=== PATIENT | male | born 1970 | race Caucasian/White ===

== ENCOUNTER → 2016-09-18 | Outpatient (CLI) | payer BC ==
[~2016-09-18] MED LIST: CYCL10TA6 PO; ESCI1TAB9 PO; MULT20CH PO; OPTIRAY 320 IV PRN; OXYC-57 PO
--- NOTE | 2016-09-18 09:24 | DIAGNOSTIC IMAGING REPORT ---
CT ABD/PELVIS IV AND ORAL CONT CLINICAL HISTORY: Left lower quadrant abdominal pain COMPARISON STUDY: None. TECHNIQUE: Following the IV administration of 116 mL of Optiray-320, CT scan of the abdomen and pelvis was performed from the lung bases to the proximal femurs. Images are reviewed in the axial, sagittal, and coronal planes. IV contrast was administered without complication. CT DOSE: 1433.08 mGy.cm FINDINGS: Lower chest: There are minor bibasilar atelectatic changes. Liver: There is mild hepatic steatosis. There is a 2 cm left lobe hepatic cyst. Gallbladder: Unremarkable. Spleen: The spleen is mildly enlarged measuring 13.7 cm in length. Pancreas: Unremarkable. Adrenal glands: Unremarkable. Kidneys: There is symmetric renal cortical enhancement. The kidneys are normal in size without hydronephrosis. Bowel: There are no transition zones indicate bowel obstruction. The appendix appears normal. There are scattered colonic diverticula present. There is mild infiltration of the fat adjacent to the descending colon. There is no significant colonic wall thickening. Epiploic appendagitis is favored over diverticulitis. There is also subtle infiltration of the fat within the left central mesentery. There are associated mildly prominent lymph nodes. Peritoneum: There is no intraperitoneal free air or abdominal ascites. Vasculature: The abdominal aorta is normal in course and caliber. Adenopathy: There are mildly prominent lymph nodes within the left central mesentery. Pelvic viscera: The bladder, and pelvic viscera are unremarkable. Skeletal structures: There is bilateral L5 spondylolysis. There is a grade 1 spondylolisthesis of L5 and S1. No destructive lesions are visualized. IMPRESSION: 1. No evidence of bowel obstruction. No evidence of free air 2. Normal appendix 3. Mild infiltration of the fat anterior to the descending colon. Epiploic appendagitis is favored over diverticulitis. Clinical follow-up is advocated 4. Subtle infiltration of the left central mesentery with mildly prominent lymph nodes. This likely represents a nonspecific mesenteritis. A lymphoproliferative process is felt to be statistically less likely. A 6 month follow-up CT scan might be considered. 5. Hepatic steatosis. 2 cm left lobe hepatic cyst. 6. Mild splenomegaly Electronically signed by: Scott Garcias M.D. 09/18/2016 9:22 AM Dictated Date/Time: 09/18/2016 9:14 AM
== END | disposition home or self-care (01) ==
LOC: C.CTS 08:45
PROVIDERS: ATTEND Family Medicine
DX: K59.00 Constipation, unspecified (principal); R16.1 Splenomegaly, not elsewhere classified

== ENCOUNTER 2017-03-28 16:40 | Emergency (ER) | payer BC ==
[~2017-03-28] VITALS: Ht 182.9 cm; Wt 127.4 kg
[2017-03-28 16:42] VITALS: TEMP 36.8; Ht 182.9 cm; Wt 127.4 kg
[2017-03-28] MEDS ORDERED: OXYCODONE/ACETAMINOPHEN 5-325 TAB PO STA (17:02)
[2017-03-28] MEDS ORDERED: ESCI1TAB9 PO (17:08)
[2017-03-28] MEDS ORDERED: MULT20CH PO (17:08)
--- NOTE | 2017-03-28 17:20 | EMERGENCY ROOM VISIT NOTE ---
History First contact with patient: 16:54 Chief Complaint: SHOULDER PAIN Stated Complaint: RIGHT SHOULDER AND NECK PAIN History of Present Illness The patient is a 46 year old male who presents to the Emergency Room with complaints of right shoulder pain after sustaining a minor fall prior to arrival. The patient was walking down concrete steps when he missed a step falling very hard against a concrete wall with his right shoulder. He now is unable to move the shoulder. He denies any other injuries. He did not hit his head. He is able to move the right elbow and the right wrist. He denies any numbness or tingling. He did not take anything for pain prior to arrival. He denies any prior trauma to this shoulder. He denies any difficulty breathing. Review of Systems 6 system review negative. Please see pertinent positives in the history of present illness section. Past Medical/Surgical History History of diverticulitis, anxiety Family History Cancer, diabetes Social History Smoking Status: Never Smoker Alcohol Use: occasionally Current/Historical Medications Scheduled Cyclobenzaprine Hcl (Flexeril), 10 MG PO TID Escitalopram Oxalate (Lexapro), 10 MG PO DAILY Multiple Vitamins W/ Minerals (Adult One Daily Gummies), 1 TAB PO DAILY Scheduled PRN Oxycodone/Acetaminophen 5MG/325MG (Percocet 5MG/325MG), 1-2 TABS PO Q4H PRN for Pain Allergies Coded Allergies: No Known Allergies (Unverified , NONE, 05/16/09) Physical Exam Vital Signs Date Time Temp Pulse Resp B/P (MAP) Pulse Ox O2 Delivery O2 Flow Rate FiO2 03/28/17 18:20 77 17 138/93 95 Room Air 03/28/17 16:42 36.8 96 18 145/82 95 Room Air Pain Rating (0-10): 9.5 Physical Exam VITALS: Vitals are noted on the nurse's note and reviewed by myself. Vital signs stable. GENERAL: 46-year-old male, in significant discomfort, SKIN: The skin a few minor abrasions noted to the right posterior ribs. Minor abrasion to the right knee. HEAD: Normocephalic atraumatic. NECK: Full range of motion of the neck . No tenderness over the cervical spine. CV: regular Rate and rhythm without murmurs gallops or rubs. THORAX: No tenderness over the thorax elicited LUNGS: Clear to auscultation bilaterally without wheezes, rales or rhonchi. No accessory muscle use. MUSCULOSKELETAL: RUE: Tenderness to palpation noted over the anterior aspect of the shoulder. Severe limitation of range of motion in all directions of the right shoulder. No tenderness noted over the clavicle. + empty can test. Sensation over the deltoid is intact. Radial pulse +2. The patient is able to wiggle his fingers. NEURO: Patient was alert and oriented to person place and time. Normal sensation to touch. No focal neurological deficits. Medical Decision & Procedures ER Provider Diagnostic Interpretation: Patient Name: PEEWEE WHITEHEAD Unit Number: [id number] Dictated: 03/28/171731 Transcribed: 03/28/171731 MS Printed Date/Time: [~ rep prt dt]/[~ rep prt tm] [~ rep ct labl] - [~ rep ct ivnm] [facility] Radiology Department [place] [id number] Dictated: 03/28/171731 Transcribed: 03/28/171731 MS Printed Date/Time: [~ rep prt dt]/[~ rep prt tm] [~ rep ct labl] - [~ rep ct ivnm] Patient: PEEWEE WHITEHEAD Address1: [address] [place] [address] Rec: [id number] Address2: Acct ID: [id number] [facility] Zip: [place] [address] Date: 1970 Sex: M Room/Bed: Ref Phy: Keyur Prescott DO SC: YAIRB Att Phy: Report #: [id number] Rosemary Phy: Keyur Prescott DO Test: SHD Admit Phy: Reproductive Surgeon: SEBASTIÁN Interpreting Phy: Micha Hylton M.D. Diagnosis: RIGHT SHOULDER AND NECK PAIN Ordering Phy: Emily Jurado PA-C Service Date: 03/28/17 Admit Date: 03/28/17 MNE: [id number] CONF: DICTATED BY: Micha Hylton M.D.]] CC: Keyur Prescott, Jessee Calhoun D.O. Urban, Angela P., PA-C Endcc: [~ rep ct add3]] RIGHT SHOULDER MIN 2 VIEWS ROUTINE CLINICAL HISTORY: ? Dislocation or fx Right trauma COMPARISON: None. DISCUSSION: Old fracture distal right clavicle. No acute bony abnormality. No evidence for dislocation. Mild degenerative change glenohumeral joint. There is no evidence for soft tissue swelling. IMPRESSION: Findings consistent with old fracture of the distal clavicle. No acute process of the shoulder. The above report was generated using voice recognition software. It may contain grammatical, syntax or spelling errors. Electronically signed by: Micha Hylton M.D. 03/28/2017 5:33 PM Dictated Date/Time: 03/28/2017 5:32 PM The status of this report is Signed. Draft = Not yet reviewed or approved by Radiologist. Signed = Reviewed and approved by Radiologist. <AttendingPhy></AttendingPhy> <FamilyPhy>Keyur Prescott DO</FamilyPhy> < PrimaryPhy>Keyur Prescott DO</PrimaryPhy> <UnitNumber>[id number]</ UnitNumber> <VisitNumber>[id number]</VisitNumber> <PatientName>PEEWEE WHITEHEAD< /PatientName> <DateOfBirth>1970</DateOfBirth> <Location>C.EDB</Location> < ServiceDate>03/28/17</ServiceDate> <MNE>ESINDI</MNE> <OrderingPhy>Emily Jurado PA-C</OrderingPhy> <OrderingPhyMNE>f rep ord dr regan</OrderingPhyMNE> < DictatingPhyMNE>f rep dict dr regan</DictatingPhyMNE> <CCListMNE>f rep ct mne</ CCListMNE> <AdmittingPhyMNE>f pt admit dr regan</AdmittingPhyMNE> <AttendingPhyMNE >f pt attend dr regan</AttendingPhyMNE> <ConsultingPhyMNE>f pt consult dr regan</ConsultingPhyMNE> <FamilyPhyMNE>f pt fam dr regan</FamilyPhyMNE> <OtherPhyMNE>f pt other dr regan</OtherPhyMNE> < PrimaryPhyMNE>f pt prim care dr regan</PrimaryPhyMNE> <ReferringPhyMNE>f pt referring dr regan</ReferringPhyMNE> Medications Administered Medications (Trade) Dose Ordered Sig/Shaye Route Start Time Stop Time Status Last Admin Dose Admin Oxycodone/ Acetaminophen (Percocet 5-325mg Tab) 1 tab NOW STAT PO 03/28/17 17:02 03/28/17 17:03 DC 03/28/17 17:11 1 TAB Oxycodone/ Acetaminophen (Percocet 5/ 325MG Home Pack) 1 homepack UD ONCE PO 03/28/17 18:00 03/28/17 18:01 DC 03/28/17 18:17 1 HOMEPACK Cyclobenzaprine HCl (FLEXERIL 10MG Home Pack) 1 homepack UD ONCE PO 03/28/17 18:00 03/28/17 18:01 DC 03/28/17 18:17 1 HOMEPACK ED Course The patient was seen and examined He was given 1 Percocet and Flexeril for pain Imaging was performed and reviewed The patient was reassessed. His pain was slightly better. We discussed the findings of his x-rays. I discussed possible etiologies of the shoulder pain. He voices understanding. The patient was given a home pack of Percocet and Flexeril His arm was put in a sling Discharge instructions were thoroughly reviewed, and the patient was discharged in good condition Medical Decision Differential diagnosis: AC separation, shoulder dislocation, fracture, rotator cuff injury, humerus fracture This patient is a pleasant 46-year-old male that presents the emergency department complaining of right shoulder pain and difficulty moving the right shoulder. He slipped hitting his right shoulder against a concrete wall. On exam, the patient was reluctant to do any range of motion with the shoulder. He was tender in the anterior portion of the shoulder. Imaging was negative for any fracture or subluxation. Upon further examination, I feel there is likely a rotator cuff injury. The patient was put in a sling. He was given pain medication and a muscle relaxant. He was instructed to follow-up with orthopedics this week. He is in agreement with this plan. Impression Primary Impression: Rotator cuff injury Departure Information Dispostion Home / Self-Care Condition GOOD Prescriptions Cyclobenzaprine Hcl (FLEXERIL) 10 Mg Tab 10 MG PO TID for Muscle Spasms, #20 TAB Prov: Emily Jurado PA-C 03/28/17 Oxycodone/Acetaminophen 5MG/325MG (PERCOCET 5MG/325MG) Tab 1-2 TABS PO Q4H Y for Pain, #15 TAB Prov: Emily Jurado PA-C 03/28/17 Referrals Keyur Prescott DO (PCP) Steve Campos D.O. Patient Instructions My [facility], Rotator Cuff Injury Additional Instructions You had been evaluated in the emergency department for an injury to your shoulder. X-rays did not show any signs of fracture or dislocation. I am concerned however that you may have an injury to your rotator cuff. Please rest the arm in a sling Please call the orthopedic doctors office in the morning to make a follow-up appointment. If you have any problems, please call the emergency department at [phone] Ibuprofen 600 mg every 6 hours Percocet 1-2 tabs every 4 hours for severe pain. Do not drink alcohol or drive while taking this medication. This may be taken with ibuprofen, but avoid Tylenol. Flexeril 1 tablet every 8 hours as needed for muscle spasms Please return to the emergency department with any new or worsening symptoms
--- NOTE | 2017-03-28 17:35 | DIAGNOSTIC IMAGING REPORT ---
RIGHT SHOULDER MIN 2 VIEWS ROUTINE CLINICAL HISTORY: ? Dislocation or fx Right trauma COMPARISON: None. DISCUSSION: Old fracture distal right clavicle. No acute bony abnormality. No evidence for dislocation. Mild degenerative change glenohumeral joint. There is no evidence for soft tissue swelling. IMPRESSION: Findings consistent with old fracture of the distal clavicle. No acute process of the shoulder. The above report was generated using voice recognition software. It may contain grammatical, syntax or spelling errors. Electronically signed by: Micha Hylton M.D. 03/28/2017 5:33 PM Dictated Date/Time: 03/28/2017 5:32 PM
[2017-03-28] MEDS ORDERED: FLEXERIL HOME PACK 10 MG VIAL PO ONE (18:00)
[2017-03-28] MEDS ORDERED: PERCOCET HOME PACK PO ONE (18:00)
[2017-03-28 18:20] VITALS: BP 138/93; PULSE 77; O2SAT 95
[2017-03-28] MEDS ORDERED: CYCL10TA6 PO (18:26)
[2017-03-28] MEDS ORDERED: OXYC-57 PO (18:26)
== END 2017-03-28 18:39 | disposition home or self-care (01) ==
LOC: C.EDB 16:41
DX: S46.001A Unspecified injury of muscle(s) and tendon(s) of the rotator cuff of right shoulder, initial encounter (principal); W10.9XXA Fall (on) (from) unspecified stairs and steps, initial encounter; W22.09XA Striking against other stationary object, initial encounter; Y93.01 Activity, walking, marching and hiking; Y99.8 Other external cause status; Z83.3 Family history of diabetes mellitus; F41.9 Anxiety disorder, unspecified; Z79.899 Other long term (current) drug therapy

== ENCOUNTER → 2017-04-26 | Outpatient (CLI) | payer BC ==
[~2017-04-26] MED LIST changes: -CYCL10TA6 PO; -OPTIRAY 320 IV PRN
--- NOTE | 2017-04-26 07:47 | DIAGNOSTIC IMAGING REPORT ---
RIGHT UPPER EXT JOINT WITHOUT CLINICAL HISTORY: RIGHT SHOULDER PAIN, POSSIBLE TEAR Right TECHNIQUE: MRI multi axial acquisition COMPARISON STUDY: None FINDINGS: Signal characteristics the osseous structures are unremarkable. A joint effusion is present. There is fluid within the subdeltoid bursa as well as acromioclavicular joint. There is a full-thickness tear of the supraspinatus tendon. There is musculotendinous retraction of approximately 2 cm. There is a partial tear of the subscapularis tendon at its insertion with the humerus. There may be a small partial tear of the infraspinatus tendon. There is no evidence for muscular tendinous retraction of either the infraspinatus or subscapularis. Biceps tendon is intact within the bicipital groove. There is a focal short segment tear anterior aspect of the glenoid labrum. Remainder of the labrum is intact. There is moderate generalized soft tissue edematous change about the shoulder. IMPRESSION: 1. Full-thickness tear with retraction of the supraspinatus tendon. 2. 2 cm of musculotendinous retraction. 3. Partial thickness tears of the subscapularis as well as infraspinatus tendons. 4. Focal short segment tear anterior glenoid labrum. The above report was generated using voice recognition software. It may contain grammatical, syntax or spelling errors. Electronically signed by: Micha Hylton M.D. 04/26/2017 7:45 AM Dictated Date/Time: 04/26/2017 7:39 AM
== END | disposition home or self-care (01) ==
LOC: C.MRIBC 06:39
PROVIDERS: ATTEND Orthopaedic Surgery
DX: M75.101 Unspecified rotator cuff tear or rupture of right shoulder, not specified as traumatic (principal)

== ENCOUNTER → 2017-07-26 | Outpatient (CLI) | payer BC ==
[2017-07-26 12:49] LABS: BASO % 0.4 %; BASO ABS # 0.02 K/uL (0-0.2); COMPLETE YES; EOS % 2.5 %; HEMATOCRIT 44.4 % (42-52); IG% 0.4 %; LYMPH % 36.5 %; LYMPH ABS # 2.05 K/uL (1.2-3.4); MEAN CELL VOLUME 90.1 fL (80-100); MEAN CORPUSCULAR HEMOGLOBIN 31.2 pg (25-34); MEAN CORPUSCULAR HGB CONC 34.7 g/dl (32-36); MEAN PLATELET VOLUME 10.6 fL (7.4-10.4); MONO % 7.8 %; NEUT % 52.4 %; PLATELET COUNT 215 K/uL (130-400); RED BLOOD COUNT 4.93 M/uL (4.7-6.1); WHITE BLOOD COUNT 5.61 K/uL (4.8-10.8)
[2017-07-26 12:53] LABS: BLOOD UREA NITROGEN 12 mg/dl (7-18); BUN/CREATININE RATIO 10.6 (10-20); CARBON DIOXIDE 27 mmol/L (21-32); CHLORIDE 102 mmol/L (98-107); CREATININE 1.15 mg/dl (0.60-1.40); GLUCOSE 100 mg/dl (70-99); POTASSIUM 4.1 mmol/L (3.5-5.1); SODIUM 138 mmol/L (136-145)
== END | disposition home or self-care (01) ==
LOC: C.CPL 10:09
PROVIDERS: ATTEND Orthopaedic Surgery
DX: Z01.812 Encounter for preprocedural laboratory examination (principal); M75.121 Complete rotator cuff tear or rupture of right shoulder, not specified as traumatic

== ENCOUNTER → 2017-08-19 | Day surgery (SDC) | payer BC ==
[2017-07-29 11:27] VITALS: Ht 182.9 cm; Wt 131.8 kg
[~2017-08-19] VITALS: Ht 182.9 cm; Wt 131.8 kg
[~2017-08-19] MED LIST changes: +BUPIVACAINE/EPINEPHRINE 0.25% 1:200,000 30 ML VIAL ONE; +CEFAZOLIN 2000MG IV PUSH 10 ML IV SCH; +DEXAMETHASONE SOD INJ 4 MG/ML VIAL ONE; +EpINEphrine INJ 1MG/ML AMP 1 MG/ML AMP ONE; +FENTANYL CITRATE INJ 50 MCG/1 ML 2 ML VIAL ONE; +KETO10TA PO; +LACTATED RINGER'S 1000ML 1,000 ML IV SCH; +LIDOCAINE HCL 2% 2 ML VIAL (20MG/ML) ONE; +MIDAZOLAM HCL 1 MG/ML 2ML VIAL ONE; +ONDANSETRON INJ 2 MG/ML 2 ML VIAL IV PRN; +ONDANSETRON INJ 2 MG/ML 2 ML VIAL ONE; +OXYCODONE/ACETAMINOPHEN 5-325 TAB PO PRN; +PROPOFOL IV EMULSION 10 MG/ML 20 ML VIAL IV ONE; +ROCURONIUM BROMIDE 10 MG/ML 5 ML VIAL IV ONE; +ROPIVACAINE 0.5% 5 MG/ML 30 ML VIAL ONE; +SODIUM CHLORIDE 0.9% 1000ML 1,000 ML IV SCH
--- NOTE | 2017-08-19 12:38 | History & Physical Bridge Note ---
H&P Re-Evaluation Bridge Note: I have examined the patient, reviewed the History & Physical and in the interval since the performance of the History & Physical I have noted the following changes of clinical significance: No changes noted
--- NOTE | 2017-08-19 15:32 | [facility] Post Operative Brief Note ---
Immediate Operative Summary Operative Date Aug 19, 2017. Pre-Operative Diagnosis Right Shoulder Large Rotator Cuff Tear Post-Operative Diagnosis Same Procedure(s) Performed Right Shoulder Arthroscopy, Large Rotator Cuff Repair, Subacromial Decompression, Biceps Tenodesis Surgeon Dr. Delarosa Ball Fringe Machine Operator Surgeon(s) Sandy Snider PA-C Estimated Blood Loss 5ML Findings as above Specimens None Complication(s) None Disposition Recovery Room / PACU
--- NOTE | 2017-08-19 15:50 | Discharge Instructions-SurgCtr ---
Discharge Instructions Date of Service Aug 19, 2017. Visit Reason for Visit: Right Shoulder Full Thickness Rotator Cuff Tear Discharge Discharge Diagnosis / Problem: SAME ABOVE Discharge Goals Goal(s): Decrease discomfort, Improve function Activity Recommendations Activity Limitations: as noted below Lifting Limitations: until after follow-up appointment (NO LIFTING WITH RIGHT SHOULDER ) Shower/Bathe: tomorrow Anesthesia . Post Anesthesia Instructions: If you have had General Anesthesia or IV Sedation: * Do not drive today. * Resume driving when surgeon permits. * Do not make important decisions or sign legal documents today. * Call surgeon for: 1. Temperature elevations greater than 101 degrees F. 2. Uncontrollable pain. 3. Excessive bleeding. 4. Persistent nausea and vomiting. 5. Medication intolerance (nausea, vomiting or rash). * For nausea and vomiting use only clear liquids such as: tea, soda, bouillon until nausea subsides, then gradually increase diet as tolerated. * If you have any concerns or questions, call your surgeon's office. If physician is unavailable and it is an emergency, call 911 or go to the nearest emergency room. . Instructions / Follow-Up Instructions / Follow-Up MEDICATIONS: * Resume previous medications unless instructed otherwise by your surgeon. * Always take pain medication on a full stomach or with food to avoid upset stomach. * Do not drink alcohol or drive while taking narcotics. * Ibuprofen or Tylenol may be taken if narcotic not needed. SPECIAL CARE INSTRUCTIONS: __ None _X_ Keep extremity elevated and iced x 48 hours; apply ice 20-30 minutes 8-10 times/day. May remove at night. __ Sling __24 hrs/day __ Remove at night _X_ Shoulder Immobilizer (MAY REMOVE AFTER 48 HOURS ONLY TO SHOWER) _X_ 24 hrs/day __ Remove at night _X_ Dressing __ Maintain until seen in office, may shower with plastic over site _X_ Remove dressings in 24-48 hours and then may shower _X_ Cover incisions with band-aids after showering __ Do not remove steri-strips Call physician if chills or temperature rises above 102 degrees or pain unrelieved by prescribed pain medications at . . Diet Recommendations Home Diet: no limitations Fluid Restriction: None Procedures Procedures Performed: Right Shoulder Arthroscopy, Large Rotator Cuff Repair, Subacromial Decompression, Biceps Tenodesis Pending Studies Studies pending at discharge: no Work Instructions Return To Work: after follow-up Lifting Limitations: NO LIFTING WITH RIGHT ARM Medical Emergencies . Who to Call and When: Medical Emergencies: If at any time you feel your situation is an emergency, please call 911 immediately. . Non-Emergent Contact Non-Emergency issues call your: Primary Care Provider Call Non-Emergent contact if: you have a fever, temperature is above 101.5 . . "Provider Documentation" section prepared by Pierre Snider. .
--- NOTE | 2017-08-19 15:57 | OPERATIVE REPORT ---
DATE OF OPERATION: 08/19/2017 PREOPERATIVE DIAGNOSIS: Traumatic large right rotator cuff tear. POSTOPERATIVE DIAGNOSIS: Same. PROCEDURES: Right shoulder diagnostic arthroscopy with limited debridement, acromioplasty, large traumatic rotator cuff repair and arthroscopic biceps tenodesis. SURGEON: Dr. Keyur Delarosa. CLINICAL PROGRAM COORDINATOR: Mario Snider PA-C, whose assistance was necessary for positioning the arm and helping with instrumentation. ANESTHESIA: General with a right interscalene nerve block. COMPLICATIONS: None. CONDITION: Stable to PACU. INDICATIONS: Mark is a pleasant 46-year-old male who fell down a couple of stairs and hit a cement wall 4 months ago. Initially, he was unable to raise his arm. He gained back some motion, but still has a lot of weakness. I was concerned for cuff tear, so sent him for an MRI. MRI showed a large rotator cuff tear. He elected to proceed with arthroscopy. DESCRIPTION OF PROCEDURE: On 08/19/2017, he arrived at [facility] for the above procedure. He was seen in the preoperative holding area and the operative extremity was identified and signed. He was given preoperative antibiotics and a right interscalene nerve block. He was taken back to the operating room, laid on the table in supine position and put under general anesthesia. He was then put into the beachchair position. The right shoulder was prepped and draped in sterile fashion. Time-out was done and the patient's operative extremity was properly identified. A scope was introduced into the posterior portal. Diagnostic arthroscopy showed no cartilage damage to the humeral head or the glenoid. The biceps tendon was intact. There was a rotator cuff tear that involved the entire supraspinatus and the superior half of the infraspinatus. It extended into the biceps tamia mechanism. The subscapularis was intact. An anterior portal was made. A shaver was used to do a limited debridement of the intraarticular structures and the biceps tendon was arthroscopically tenotomized for later tenodesis. A scope was then put into the subacromial space. A lateral portal was made. A shaver was used to do a complete subacromial and subdeltoid bursectomy. An ablator was used to tease the coracoacromial ligament off the undersurface of the acromion and a 5-0 aleena was used to complete an acromioplasty of a Bigliani type 3 acromion. A shaver was used to remove any excess debris and attention was turned to the rotator cuff. An additional anterolateral portal was made and Shakila cannulas were placed in each of the lateral portals. The greater tuberosity was then prepared with a ring curette and a microfracture. The rotator cuff was then fixed with an Arthrex SpeedBridge configuration using BioComposite SwiveLock suture anchors and FiberTapes. The long head of the biceps tendon was tagged with a FiberLink and incorporated into the anterior medial anchor. This completed an arthroscopic biceps tenodesis. Once the rotator cuff was fixed, multiple pictures were taken. The scope was placed back into the glenohumeral joint and the articular margin of the rotator cuff had been restored. Pictures were taken. Arthroscopic instruments were removed from the shoulder. Portal sites were closed with 3-0 nylon. He was then placed in a soft dressing and abduction arm sling. He was then extubated, transferred to a litter and taken to the postanesthesia care unit in stable condition. He tolerated the procedure well. I attest to the content of the Intraoperative Record and any orders documented therein. Any exception s are noted below.
[2017-08-19 16:32] VITALS: TEMP 36.1
[2017-08-19 17:08] VITALS: BP 124/71; PULSE 72; O2SAT 94
--- NOTE | 2017-08-19 17:15 | Anesthesia Progress Nt - [facility] ---
Anesthesia Post Op Note Date & Time Aug 19, 2017 at 17:15 Vital Signs Pain Intensity: 0 Vital Signs Past 12 Hours Date Time Temp Pulse Resp B/P (MAP) Pulse Ox O2 Delivery O2 Flow Rate FiO2 08/19/17 17:08 72 16 124/71 (88) 94 Room Air 08/19/17 16:32 36.1 78 16 119/67 (84) 95 Room Air 08/19/17 16:31 130/86 08/19/17 16:28 75 19 08/19/17 16:28 75 19 93 08/19/17 16:26 141/89 08/19/17 16:23 77 14 146/90 91 08/19/17 16:23 77 14 08/19/17 16:21 153/105 08/19/17 16:18 36.1 82 16 141/89 93 Room Air 08/19/17 16:18 79 17 91 08/19/17 16:18 81 17 08/19/17 16:16 153/96 08/19/17 16:13 81 16 94 08/19/17 16:13 80 16 08/19/17 16:10 157/94 08/19/17 16:08 75 14 08/19/17 16:08 75 14 98 08/19/17 16:06 154/97 08/19/17 16:03 79 14 96 08/19/17 16:03 79 14 08/19/17 16:00 152/89 08/19/17 15:58 77 16 08/19/17 15:58 77 16 96 08/19/17 15:57 76 16 97 08/19/17 15:57 76 16 08/19/17 15:55 159/89 08/19/17 15:52 80 14 96 08/19/17 15:52 80 14 08/19/17 15:51 36.1 86 16 157/99 97 Mask 10 08/19/17 15:50 159/98 08/19/17 15:50 157/99 08/19/17 14:02 0 08/19/17 14:01 134/84 08/19/17 13:57 64 08/19/17 13:57 63 22 98 08/19/17 13:56 147/101 08/19/17 13:52 59 20 99 08/19/17 13:52 62 08/19/17 13:51 59 127/80 93 08/19/17 13:51 55 08/19/17 13:46 59 08/19/17 13:46 58 95 08/19/17 13:41 78 97 08/19/17 13:41 70 08/19/17 13:36 58 93 08/19/17 13:36 58 08/19/17 12:16 36.4 63 16 126/83 (97) 95 Room Air Notes Mental Status: alert / awake / arousable, participated in evaluation Pt Amnestic to Procedure: Yes Nausea / Vomiting: adequately controlled Pain: adequately controlled Airway Patency, RR, SpO2: stable & adequate BP & HR: stable & adequate Hydration State: stable & adequate Anesthetic Complications: no major complications apparent
== END | disposition home or self-care (01) ==
LOC: X.SURG 11:42
PROVIDERS: ATTEND Orthopaedic Surgery
DX: S46.011A Strain of muscle(s) and tendon(s) of the rotator cuff of right shoulder, initial encounter (principal); W10.9XXA Fall (on) (from) unspecified stairs and steps, initial encounter; F41.9 Anxiety disorder, unspecified; E66.9 Obesity, unspecified; Z88.3 Allergy status to other anti-infective agents; Z68.34 Body mass index [BMI] 34.0-34.9, adult; F17.220 Nicotine dependence, chewing tobacco, uncomplicated; Z98.890 Other specified postprocedural states; Z80.0 Family history of malignant neoplasm of digestive organs